=== PATIENT | female | born 1970 | race Caucasian/White ===

== ENCOUNTER 2018-06-13 17:12 | Emergency (ER) | payer OTHER ==
[~2018-06-13] VITALS: Ht 160 cm; Wt 86.2 kg
[~2018-06-13 17:12] MED LIST: ALBU2.5V8 INH; AZIT250T PO; BENZ100C PO; HYDR5SUS PO; PRED20TA PO
[2018-06-13 19:00] VITALS: BP 139/83
[2018-06-13] MEDS ORDERED: CYCL5TAB PO (20:42)
[2018-06-13] MEDS ORDERED: HYDROcodone/APAP 5/325MG 1 TAB TABLET PO ONE (20:45)
[2018-06-13] MEDS ORDERED: ONDANSETRON ODT 4 MG TAB.RAPDIS. PO ONE (20:45)
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
== END 2018-06-13 22:14 | disposition home or self-care (01) ==
LOC: ER 17:12
DX: S83.92XA Sprain of unspecified site of left knee, initial encounter (principal); R51 Headache; M54.2 Cervicalgia; M43.16 Spondylolisthesis, lumbar region; E11.42 Type 2 diabetes mellitus with diabetic polyneuropathy; Z98.890 Other specified postprocedural states; F41.9 Anxiety disorder, unspecified; Z90.710 Acquired absence of both cervix and uterus; Z88.5 Allergy status to narcotic agent; Z88.6 Allergy status to analgesic agent; V49.88XA Car occupant (driver) (passenger) injured in other specified transport accidents, initial encounter; Y93.89 Activity, other specified; Y92.488 Other paved roadways as the place of occurrence of the external cause; Y99.8 Other external cause status
CPT/HCPCS: 72100; 72125; 73562; 99284; Q0162